=== PATIENT | male | born 1950 | race Caucasian/White ===

== ENCOUNTER 2024-09-03 20:42 | Emergency (ER) | payer OTHER, SELFPAY ==
[2024-09-03 20:44] VITALS: BMI 27.9
[2024-09-03 21:01] VITALS: BP 125/71; PULSE 70; RESP 16; TEMP 37; O2SAT 93
--- NOTE | 2024-09-03 21:06 | CTR_ITS ---
PROCEDURE INFORMATION: Exam: CT Head Without Contrast Exam date and time: 09/03/2024 9:11 PM Age: 74 years old Clinical indication: Stroke-like symptoms; Altered mental status/memory loss and speech disturbance; Additional info: Neurological symptoms TECHNIQUE: Imaging protocol: Computed tomography of the head without contrast. Total images: 1339 Radiation optimization: All CT scans at this facility use at least one of these dose optimization techniques: automated exposure control; mA and/or kV adjustment per patient size (includes targeted exams where dose is matched to clinical indication); or iterative reconstruction. Other technique: STROKE PROTOCOL was implemented. COMPARISON: No relevant prior studies available. RADIATION DOSE METRICS: Total DLP (mGy-cm): 976.5 FINDINGS: Brain: Left frontal intraparenchymal bleed with adjacent vasogenic edema this measures 3.5 x 3.3 x 3.1 cm giving a volume of 18 mL. Area of encephalomalacia present in the left temporal lobe. Global brain atrophy and chronic white matter ischemic changes are present. Cerebral ventricles: Mild mass effect is seen on the frontal horn of the left lateral ventricle. No significant midline shift. Ventricles are appropriate in size for degree of atrophy. Paranasal sinuses: Visualized sinuses are unremarkable. No fluid levels. Mastoid air cells: Visualized mastoid air cells are well aerated. Bones: Unremarkable. No acute fracture. Soft tissues: Unremarkable. CT/CT head wo con* [id number] IMPRESSION: 1. Left frontal intraparenchymal bleed with adjacent vasogenic edema this measures 3.5 x 3.3 x 3.1 cm giving a volume of 18 mL. 2. Mild mass effect is seen on the frontal horn of the left lateral ventricle. No significant midline shift. ASSESSMENT: ASPECTS ([place] Stroke Program Early CT Score) is 10.
[2024-09-03 21:35] LABS: Basophils % 0.5 %; Eosinophils % 0.4 %; Hematocrit 40.9 % (37-53); Lymphocytes # 1.2 10^3/uL (0.8-4.8); Lymphocytes % 14.3 %; Mean Corpuscular HGB Conc 34.7 g/dL (30-55); Mean Corpuscular Hemoglobin 31.5 pg (27-33); Mean Corpuscular Volume 90.7 fl (82-101); Mean Platelet Volume 8.9 fL (7.4-10.4); Monocytes % 11.9 %; Neutrophils # 5.97 10^3/uL (1.8-7.7); Neutrophils % 72.7 %; Nucleated Red Blood Cells % 0 %; Platelet Count 218 10^3/cmm (157-399); Red Blood Count 4.51 10^6/uL (3.85-5.65); Red Cell Distribution Width 12.2 % (12.1-15.1); White Blood Count 8.21 10^3/uL (3.29-11.43)
--- NOTE | 2024-09-03 21:37 | ED_ITS ---
HPI - Neuro Symptoms/Deficit 2 General: Chief Complaint: Neuro Symptoms/Deficit Stated Complaint: confusion, right side drawing previous brain bleed Time Seen by Provider: 09/03/24 21:10 Source: patient Mode of arrival: ambulatory Limitations: no limitations History of Present Illness: Patient this morning started having some difficulty with orientation as well as word finding difficulty. Cannot complete sentences. Or sometimes there is random and dropped word from the sentences. A little bit of right sided weakness per the . Patient denies any pain or headache Related Data Home Medications ?Medication ?Instructions ?Recorded ?Confirmed aspirin 81 mg tablet,delayed 81 mg PO DAILY 02/05/24 0 02/05/24 release diltiazem HCl 240 mg 240 mg PO DAILY 02/05/24 capsule,extended release 24 hr hydrochlorothiazide 12.5 mg capsule 12.5 mg PO DAILY 0 02/05/24 02/05/24 pravastatin 80 mg tablet 80 mg PO DAILY 02/05/2401/15 Previous Rx's ?Medication ?Instructions ?Recorded cephalexin 500 mg capsule 500 mg PO Q8H 10 days #30 ca ps 02/05/24 mupirocin 2 % topical ointment 1 applic topical BID #1 5 grams 02/05/24 Allergies Allergy/AdvReac Type Severity Reaction Status Date / Time No Known Allergies Allergy Verified 02/05/24 10:24 Review of Systems 2 General: Reports: 10 or more systems reviewed and unremarkable except in HPI and below PFSH ED 2 PFSH: Social History Smoking and tobacco/nicotine status: never used tobacco/nicotine NIH stroke score 2 NIHSS: Level Of Consciousness - 1a: 0 Level Of Consciousness Questions - 1b: Both Correct Level Of Consciousness Commands - 1c: Both Correct Best Gaze - 2: Normal Visual Bhardwaj - 3: No Visual Loss Facial Palsy - 4: N ormal Motor Arm Right - 5: No Drift Motor Arm Left - 5: No Drift Motor Leg Right - 6: No Drift Motor Leg Left - 6: No Drift Limb Ataxia - 7: A bsent Sensory - 8: Normal Best Language - 9: Mild/Moderate Aphasia D ysarthia - 10: Normal Extinction And Inattention - 11: 0 Score: Total Score: 1 Physical Exam 2 Const: COMMON NORMALS: no acute distress, average body habitus, patient oriented x3 (Person place and the fact that it is evening. Correct month as well.), healthy appearing, alert and well nourished GENERAL APPEARANCE: well kempt and well developed HENMT: COMMON NORMALS: normocephalic, atraumatic, external ears normal and moist oral mucous membranes HEAD & SCALP: normocephalic and atraumatic E XTERNAL EAR: Yes external ears normal Eye: COMMON NORMALS: Equal, round and reactive pupils present, EOMs intact bilaterally and conjunctivae normal CONJUNCTIVA: Yes conjunctivae normal P UPIL: Yes Equal, round and reactive pupils present Neck/C-Spine: COMMON NORMALS: full ROM, no lymphadenopathy, supple and no meningeal signs Chest: CHEST: Yes Symmetrical chest wall rise and No Surgical scars present (Chest) Resp: COMMON NORMALS: normal respiratory effort, No retractions, No use of accessory muscles and clear to auscultation bilaterally AUSCULTATION: clear to auscultation bilaterally Cardio: COMMON NORMALS: regular rate, regular rhythm, S1 normal heart sound present, S2 normal heart sound present, No gallops present (Cardio), No clicks present (Cardio), No murmurs present (Cardio) and No rub (Cardio) RATE: r egular rate RHYTHM: regular rhythm HEART SOUNDS: S1 normal heart sound present, S2 normal heart sound present and no murmurs PERIPHERAL PULSES: o ther (Radial pulses 2+ and symmetric) GI: COMMON NORMALS: Soft to palpation, non-tender and no masses INSPECTION: No abdominal distension PALPATION: Yes Soft to palpation, No Guarding due to palpation present (GI) and No Rebound tenderness present : COMMON NORMALS: Yes no CVA tenderness BLADDER/KIDNEY EXAM: Yes no CVA tenderness Back/Pelvis: COMMON NORMALS: no CVA tenderness Extremity: COMMON NORMALS: normal to inspection, full ROM, capillary refill normal and no clubbing, cyanosis or edema Neuro: COMMON NORMALS: patient oriented x3 (Person place and the fact that it is evening. Correct month as well.), CN's II-XII intact bilaterally and moves all extremities SENSORIUM/ORIENTATION: Yes alert MENINGEAL SIGNS: Yes no meningeal signs COORDINATION/BALANCE: [id number] test normal and [id number] test normal SPEECH: Other neuro speech findings (Trouble with finding words and completing sentences, answering yes no or on) MOTOR EXAM: 5 /5 motor strength present throughout, Pronator motor function not present and no tremor noted COORDINATION: [id number] test normal and [id number] test normal Psych: APPEARANCE: Yes well kempt Skin: COMMON NORMALS: no rashes or lesions noted, no wounds, turgor normal and no jaundice GENERAL SKIN EXAM: no rashes or lesions noted and turgor normal Course 2 Vital Signs: Vital signs: Vital Signs Temperature 98.6 F 09/03/24 21: Pulse Rate 70 09/03/24 21: Respiratory Rate 16 09/03/24 21: Blood Pressure 125/71 09/03/24 21: Pulse Oximetry 93 09/03/24 21: Oxygen Delivery Me thod Room Air 09/03/24 21: MDM - Neuro Symptoms/Deficit Medical Decision Making Patient brought in by for difficulty finding words and possibly some right- sided weakness. Has a history of a brain bleed spontaneous back in January. Had similar presenting symptoms at that time. CT was performed rapidly and showed left frontal lobe 3-1/2 x 3 x 3 cm intraparenchymal hemorrhage. Spontaneous no known trauma. Initiated transfer spoke with Dr. Gardner here regarding a stroke alert she agreed with transfer. Then spoke with transfer center at [facility]. Dr. Spaulding is the accepting physician. Medical Records I reviewed the patient's medical records. Lab Data I reviewed the patient's lab results. 09/03/24 21:24 09/03/24 21:[address] 09/03/24 21:06 IMPRESSION: 1. Left frontal intraparenchymal bleed with adjacent vasogenic edema this measures 3.5 x 3.3 x 3.1 cm giving a volume of 18 mL. 2. Mild mass effect is seen on the frontal horn of the left lateral ventricle. No significant midline shift. ASSESSMENT: ASPECTS ([place] Stroke Program Early CT Score) is 10. Laboratory Results WBC 8.21 10^3/uL (3.29-11.43) 09/03/24 21:24 RBC 4.51 10^6/uL (3.85-5.65) 09/03/24 21:24 Hgb 14.20 g/dL (11.27-16.99) 09/03/24 21: Hct 40.9 % (37-53) 09/03/24: MCV 90.7 fl (82-101) 09/03/24: MCH 31.5 pg (27-33) 09/03/24: MCHC 34.7 g/dL (30-55) 09/03/24 21: RDW 12.2 % (12.1-15.1) 09/03/24: Plt Count 218 10^3/cmm (157-399) 09/03/24: MPV 8.9 fL (7.4-10.4) 09/03/24: Neut % (Auto) 72.7 % 09/03/24: Lymph % (Auto) 14.3 % 09/03/24: Blanco % (Auto) 11.9 % 09/03/24: Eos % (Auto) 0.4 % 09/03/24: Baso % (Auto) 0.5 % 09/03/24: Neut # (Auto) 5.97 10^3/uL (1.8-7.7) 09/03/24: Lymph # (Auto) 1.2 10^3/uL (0.8-4.8) 09/03/24: Blanco # (Auto) 1.0 10^3/uL (0.2-0.9) H 09/03/24: Eos # (Auto) 0.0 10^3/uL (0.0-0.8) 09/03/24: Baso # (Auto) 0.0 10^3/uL (0.0-0.1) 09/03/24: Nucleated RBC % (auto) 0 % 09/03/24: Nucleated RBCs # 0.0 /100WBC 09/03/24: All radiology interpretation(s) finalized by discharge ED provider radiology interpretation(s): Personally reviewed patient's head CT while he was still in the CT scanner. Measured a 3-1/2 to 3.8 cm intraconal hemorrhage in the left frontotemporal area. No midline shift by my impression. Critical Care Time 2 Critical Care Time: Critical Care Time: Yes Total Critical Care Time: 35 Attestation: This case had a high probability of a clinically significant, sudden, or life threatening deterioration of this patient's condition which required my full and direct attention, intervention and personal management. Discharge Plan Discharge Patient Disposition: Xfer Short-Term Hosp Clinical Impression: Spontaneous intraparenchymal intracranial hemorrhage, acute Condition: Stable Prescriptions: No Action pravastatin 80 mg tablet 80 mg PO DAILY diltiazem HCl 240 mg capsule,extended release 24hr 240 mg PO DAILY hydrochlorothiazide 12.5 mg capsule 12.5 mg PO DAILY aspirin 81 mg tablet,delayed release (DR/EC) 81 mg PO DAILY cephalexin 500 mg capsule 500 mg PO Q8H 10 Days Qty: 30 0RF mupirocin 2 % ointment 1 applic topical BID Qty: 15 0RF Print Language: British Coding Level of Care Code ED Education Teacher for Kimberly Sylvester
[2024-09-03 21:49] LABS: Blood Urea Nitrogen 23 mg/dL (8-23); Calcium 8.9 mg/dL (8.5-10.5); Carbon Dioxide 27 mmol/L (22-29); Chloride 103 mmol/L (98-107); Creatinine Clr Calc Pharmacy 44.1189; Glucose 90 mg/dL (65-115); Osmolality Calculated 295 mOsm/kg (285-295); Sodium 141 mmol/L (136-145)
--- NOTE | 2024-09-03 22:24 | PC.NURSE ---
called to speak with dr. jorge about patient. patient did not have stroke deficits but was unable to confirm his location, president, and age. dr. jorge instructed me that stroke alert was not necessary due to lack of stroke-like symptoms. explained patient has history of brain bleed and has onset of confusion as of this morning. I immediately took patient to room 11 after triaging and EKG were complete. patient was ambulatory and able to ambulate to room 11. CT was ordered minutes after placing patient in room 11.
[2024-09-03 22:34] VITALS: BP 108/67; PULSE 69; RESP 18; O2SAT 92
== END 2024-09-03 22:36 | disposition short-term general hospital (02) ==
PROVIDERS: Emergency Provider Emergency Medicine
DX: I61.8 Other nontraumatic intracerebral hemorrhage (principal); Z79.82 Long term (current) use of aspirin
CPT/HCPCS: 36415; 70450; 80048; 85025; 99285

== ENCOUNTER → 2025-03-24 12:44 | Outpatient (BNVA) | payer OTHER, SELFPAY | PROVIDERS: Visit Provider Nurse Practitioner Family | DX: L72.0 Epidermal cyst (principal); L73.8 Other specified follicular disorders; D69.2 Other nonthrombocytopenic purpura; L82.1 Other seborrheic keratosis; D48.5 Neoplasm of uncertain behavior of skin | CPT/HCPCS: 10060; 11102; 17000; 99204 ==